=== PATIENT | male | born 1955 | race Caucasian/White ===

== ENCOUNTER → 2021-01-15 | Day surgery (SDC) | payer OTHER ==
[~2021-01-15] VITALS: Ht 182.9 cm; Wt 97.5 kg
[~2021-01-15] MED LIST: ACETAMINOPHEN500 M1 PO; ASPIRIN EC81 MG PO; COLACE100 MG PO; MOTRIN600 MG PO; NORVASC5 MG PO; OXY-IR 5MG5 MG PO
[2021-01-15 08:22] LABS: BUN/CREAT RATIO (CALC) 21.1 RATIO; CREATININE 0.9 mg/dL (0.67-1.17); POTASSIUM 3.9 mmol/L (3.5-5.1)
== END | disposition home or self-care (01) ==
LOC: FAS 07:32
PROVIDERS: Anesthesiology
DX: K40.30 Unilateral inguinal hernia, with obstruction, without gangrene, not specified as recurrent (principal); N43.3 Hydrocele, unspecified; Z79.82 Long term (current) use of aspirin; Z79.899 Other long term (current) drug therapy; Z87.891 Personal history of nicotine dependence
CPT/HCPCS: 36415; 80048; J0690; J1100; J1170; J1644; J1885; J2250; J2405; J2704; J2795; J3010; J7120